=== PATIENT | male | born 1985 ===

== ENCOUNTER 2022-05-29 15:40 | Emergency (ER) | payer OTHER ==
[~2022-05-29] VITALS: Ht 175.3 cm; Wt 84.1 kg
[2022-05-29] MEDS ORDERED: BACL10TA PO (18:33)
[2022-05-29] MEDS ORDERED: IBUP-2070 PO (18:34)
[2022-05-29 20:02] VITALS: BP 108/60
== END 2022-05-29 20:11 | disposition home or self-care (01) ==
LOC: EDBD 15:44 → EMS 15:44
DX: M54.2 Cervicalgia (principal); V98.8XXA Other specified transport accidents, initial encounter; Y93.89 Activity, other specified; Y92.89 Other specified places as the place of occurrence of the external cause; Y99.8 Other external cause status
CPT/HCPCS: 72040; 99283